=== PATIENT | female | born 1965 | race Caucasian/White ===

== ENCOUNTER 2021-01-27 14:19 | Inpatient (IN) | payer OTHER, SELFPAY ==
[2021-01-27] VITALS (7 sets, daily range): BP systolic 121–162; BP diastolic 69–100; PULSE 65–89; RESP 12–18; TEMP 36–37.3; O2SAT 93–100; BMI 34.3; BMI 35.6
--- NOTE | 2021-01-27 12:59 | CT_ITS ---
HISTORY: right ankle fracture EXAMINATION: CT Ankle W/O Contrast Injection TECHNIQUE: Helically acquired images were obtained of the right ankle. 2-D reformats were performed by the technologist. A radiation dose optimization technique was used for this scan. IV Contrast dosage and agent: COMPARISON: Right ankle series same date FINDINGS: SOFT TISSUES: Mild soft tissue swelling about the ankle medially and laterally, mild anterior edema. No radiopaque foreign body. BONES/JOINTS: Comminuted and displaced fractures of the distal fibula. Displaced and comminuted fracture of the medial malleolus. Displaced and comminuted fracture of the posterior malleolus. Talus displaced laterally with mild tilt. No fracture of the hindfoot are included mid foot. CT/Extremity Lower without Contra IMPRESSION: Comminuted trimalleolar fracture with instability of the mortise joint. Individualized dose optimization techniques were used for this CT. at 1947 Reported and signed by: Edmundo Luna MD Electronically Signed: Edmundo Luna MD at 19:45 EDT Tel , Service support ,
--- NOTE | 2021-01-27 14:24 | RAD_ITS ---
STUDY: X-RAY - RIGHT ANKLE REASON FOR EXAM: Female, 55 years old. FALL TECHNIQUE: 3 view(s) of the ankle. COMPARISON: None. FINDINGS: Lateral displacement of an oblique fracture of the distal fibula. Transverse fracture of the medial malleolus. Asymmetrical ankle mortise. Posterior subluxation of the tibial talar joint. Normal visualized talus and calcaneus. The visualized subtalar, talonavicular, calcaneocuboid and tarsal articulations are normal. Soft tissue swelling. RAD/Ankle min 3 Views IMPRESSION: Oblique fracture of the distal fibula as well as transverse fracture of the medial malleolus with posterior subluxation of the talotibial talar joint. Disruption of the ankle mortise. Electronically Signed: Beau Bailey MD at 14:59 EDT , Service support ,
[2021-01-27] MEDS: fentaNYL 100 MCG/2 ML Ampul 50 MCG IV ×3 (16:05→17:30)
--- NOTE | 2021-01-27 16:38 | EDS_ITS ---
HPI History of Present Illness Chief Complaint: Lower Extremity Injury Informant: patient Occured/Mechanism Mechanism/Context: Yes injury Onset/Context/Timing Onset: Today and Hours Timing: Continuous Current Severity: Moderate Maximum Severity: Moderate Narrative Narrative: 55-year-old female who slipped today twisted her right ankle now having significant pain and swelling. She was brought in by squad. She is in air splint. She denies any other injuries. Did not hit her head. She does have a history of hypertension. Prior similar symptoms: No Recent Illness/Hospitalization: No PFSH PFSH Medical History Hypertension Home Medications losartan 25 mg PO DAILY 01/27/21 [History Last Taken 01/26/21] Allergy/AdvReac Type Severity Reaction Status Date / Time No Known Allergies Allergy Verified 01/27/21 14:20 Social History Smoking Status: Never smoker ROS ROS ED ROS Narrative Denies any recent illness. Review of Systems ROS Unobtainable: Denies due to encephalopathy Constitutional Constitutional ED: Denies chills or fever(s) Eyes Eyes: Denies change in vision ENT ENT ED: Denies ear pain Cardiovascular Cardiovascular: Denies chest pain Respiratory/Chest Respiratory/Chest: Denies dyspnea Gastrointestinal Gastrointestinal: Denies abdominal pain, diarrhea, nausea or vomiting Genitourinary Genitourinary ED: Denies dysuria Musculoskeletal Musculoskeletal: Denies myalgias Integumentary Denies rash Neurologic Neurologic: Denies headache(s) Psychiatric Psychiatric: Denies depression Endocrine Endocrinology: Denies polyuria Hematologic/Lymphatic Hematologic/Lymphatic: Denies easy bruising Allergic/Immunologic Allergic/Immunologic ED: Denies urticaria EXAM Physical Exam Narrative Exam Narrative: Well-appearing middle-aged female. Vital signs stable afebrile. HEENT exam atraumatic. Pupils round reactive light. C-spine nontender. Lungs clear to auscultation bilaterally. Chest nontender. Heart regular rate and rhythm. Abdomen soft nontender. Normal bowel sounds no peritoneal signs. Pelvic girdle intact. Left lower extremity both upper extremities are nontender. Normal range of motion. Neurovascularly intact. No deformities. Right lower extremity right hip and knee are nontender nonswollen. Right ankle has both medial lateral tenderness. Swelling. DP pulses intact. Able to wiggle her toes. Normal touch sensation. Achilles tendon intact. Skin intact. Const Vital Signs: 01/27/21 14:21 01/27/21 15:29 01/27/21 17:24 Temperature 96.8 F L Temperature Source Temporal Pulse Rate 65 75 78 Respiratory Rate 16 12 18 Blood Pressure 123/79 H 147/69 H 162/71 H Blood Pressure Mean 93 95 101 Pulse Ox 96 99 96 Oxygen Delivery Method Room Air Room Air Room Air HEENT normocephalic and atraumatic; Negative for trauma Eyes PERRL Neck full ROM and supple Thyroid: Negative for tender Chest Wall inspection of chest normal and palpation of chest normal Resp normal respiratory effort, no retractions and clear to auscultation bilaterally Cardio regular rate, regular rhythm, S1 normal heart sound, S2 normal heart sound and no murmurs GI non-tender, non-distended and no masses Auscultation: normoactive bowel sounds Palpation: soft; Negative for tender Back/Spine no CVA tenderness Extremity normal to inspection and full ROM Extremity Narrative: Extremities are normal except right ankle swollen. Tender both medially and laterally. Achilles tendon intact. Skin closed. DP pulse intact. Able to wiggle her toes. Normal sensation. Exam consistent with a right ankle fracture. General Extremety ED: Negative for cyanosis, edema or weight-bearing difficulty General Extremity: Negative for cyanosis, edema or weight-bearing difficulty Psych mental status grossly normal Skin Lesions: no lesions Rashes: no rashes MDM MDM MDM Narrative Medical decision making narrative: Patient right ankle injury with on x-ray is a bimalleolar fracture with subluxation of the ankle mortise.. She has been treated with fentanyl IV x2 here and once by the squad. The monitor to be cleaned off of the extremity. She will be placed in a short leg posterior splint with sugar tong medial lateral support.. I have podiatry on page to discuss the case. Patient is hoping for definitive treatment as soon as possible because she lives in [place] and does not have any physicians here and will be here for another week to 2 weeks. Thank you Radiography Diagnostic Testing: Radiology Impression Ankle X-Ray 01/27/21 14:24 IMPRESSION: Oblique fracture of the distal fibula as well as transverse fracture of the medial malleolus with posterior subluxation of the talotibial talar joint. Disruption of the ankle mortise. Electronically Signed: Beau Bailey MD at 14:59 EDT , Service support , Right ankle 3 view x-ray agree with bimalleolar fracture with subluxation and disruption of the ankle mortise. Procedures Lower Extremity Splints Lower Extremity Splint: Orthoglass and Stirrup Splint Fabrication: Fabricated Location: Right Discharge Plan Dx/Rx/DC Orders Clinical Impression: Fall, Bimalleolar avulsion fracture of right ankle Disposition Disposition: Acute Care Hospital [facility]
--- NOTE | 2021-01-27 17:42 | PN.HOSP_ITS ---
Documented by User: Ofelia Saul NP, HOSPITAL CLEANER-C 01/27/21 17:53 Subjective Subjective Patient seen and examined. Being admitted under podiatry for bimalleolar fracture. Patient still experiencing significant pain however just received pain medication in ED. Hospitalist services consulted for medical management. Patient reports a history of hypertension which is controlled. Objective Data Objective Data Vital Signs: Vital Signs Temp Pulse Resp BP Pulse Ox 96.8 F L 78 18 162/71 H 96 01/27/21 14:21 01/27/21 17:24 01/27/21 17:24 01/27/21 17:24 01/27/21 17:24 Oxygen Delivery Method Room Air Weight: 200 lb Body Mass Index (BMI) 34.3 Radiography Diagnostic Testing: Radiology Impression Ankle X-Ray 01/27/21 14:24 IMPRESSION: Oblique fracture of the distal fibula as well as transverse fracture of the medial malleolus with posterior subluxation of the talotibial talar joint. Disruption of the ankle mortise. Electronically Signed: Beau Bailey MD at 14:59 EDT , Service support , Physical Exam Const alert, oriented x3 and no apparent distress Orientation / Consciousness: awake, oriented to person, oriented to place and oriented to time HEENT normocephalic and moist oral mucous membranes Eyes PERRL, EOMs intact bilaterally and conjunctivae normal Neck no lymphadenopathy Resp normal respiratory effort and clear to auscultation bilaterally Cardio regular rate, regular rhythm and no murmurs Peripheral Pulses: pulses 2+ throughout GI normal to inspection, nondistended, normoactive bowel sounds, non-tender and non-distended Extremity normal to inspection Extremity Narrative: Right lower extremity in cast Skin no rashes or lesions noted Lesions: no lesions Rashes: no rashes Trauma: no lacerations or abrasions Neuro CN's II-XII intact bilaterally, no focal motor deficits, no sensory deficits no winnie and deep tendon reflexes 2+ bilaterally Psych mental status grossly normal and affect normal Assessment & Plan Assessment/Plan (1) Bimalleolar avulsion fracture of right ankle: PLAN: 1. Hypertension- controlled. Continue home losartan regimen. 2. Traumatic bimalleolar fracture right ankle- management per podiatry. DVT prophylaxis- per podiatry This patient was seen by Ofelia Saul NP-Alexandru under the supervision of Dr. Baker. Documented by User: Dr. Avery Baker DO 01/27/21 19:27 Charges/Coding Addendum Addendum: Patient was seen and examined independently of Ofelia Saul, she was admitted through the emergency room at [facility] today after sustaining a fall and fracturing her right ankle. Chronic medical problems include essential hypertension. On examination she appeared in good health and spirits, she does not appear to be in any distress. Vital signs as documented. Skin warm and dry and without overt rashes. Neck without JVD, thyroid appears normal, trachea is midline, neck is supple. Lungs clear, normal air movement was noted. Heart exam notable for regular rhythm, normal sounds and absence of murmurs, rubs or gallops. Abdomen unremarkable and without evidence of organomegaly, masses, or abdominal aortic enlargement, bowel sounds are present in all 4 quadrants, no abdominal tenderness was noted. Extremities-a splint was present over the patient's right lower leg, no cyanosis was noted, no clubbing was noted. Neuro: Cranial nerves II through XII are grossly intact, no focal motor deficits were noted, sensation to light touch and pinprick is intact, motor exam 5/5 throughout. Psych: Patient is alert and oriented x3, she does not appear anxious or depressed, she does not appear agitated. I have reviewed Ofelia Saul's progress note including her medical assessment and plan of care and endorse it. Visit Charges Inpatient E&M: 19531 Subs Hosp L2
--- NOTE | 2021-01-27 18:27 | CT_ITS ---
HISTORY: right ankle fracture EXAMINATION: CT Ankle W/O Contrast Injection TECHNIQUE: Helically acquired images were obtained of the right ankle. 2-D reformats were performed by the technologist. A radiation dose optimization technique was used for this scan. IV Contrast dosage and agent: COMPARISON: Right ankle series same date FINDINGS: SOFT TISSUES: Mild soft tissue swelling about the ankle medially and laterally, mild anterior edema. No radiopaque foreign body. BONES/JOINTS: Comminuted and displaced fractures of the distal fibula. Displaced and comminuted fracture of the medial malleolus. Displaced and comminuted fracture of the posterior malleolus. Talus displaced laterally with mild tilt. No fracture of the hindfoot are included mid foot. CT/Coronals Sag Multi Obl 3-D Rec IMPRESSION: Comminuted trimalleolar fracture with instability of the mortise joint. Individualized dose optimization techniques were used for this CT. at 1947 Reported and signed by: Edmundo Luna MD Electronically Signed: Edmundo Luna MD at 19:45 EDT Tel , Service support ,
[2021-01-27] MEDS: 0.9% Saline Lock 10 ML Syringe IV ×2 (19:32→23:56)
[2021-01-27] MEDS: HYDROmorphone 1 MG/ML Syringe IV ×2 (19:33→23:56)
--- NOTE | 2021-01-27 20:01 | PCM.HP.STD ---
HPI - General General Date of Admission: 01/27/21 HPI Narrative PRINCESS PAGE, is a 55 F who presents to the [facility] ER for right ankle fracture. She twisted her ankle today, and sustained a tri-malleolus ankle fracture. I was contacted by ER regarding this patient. Patient lives in [place], [place], and is here visiting family when she twisted her right ankle. 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 She relates she definitely wants to have any possible surgical correction as soon as possible, and would like to have it here in [place] prior to going back home. She relates she plans to stay here for about another 10 days, but could possibly stay a little longer if needed. Per discussion with ER physician they will make attempts at closed reduction and splint placement in the ER. Patient going to be admitted for pain control and plans for ORIF. Patient otherwise relates she relates to hx of hypertension. She denies any injury. She has no other complaints. [facility] Medical History Hypertension Home Medications losartan 25 mg PO DAILY 01/27/21 [History Last Taken 01/26/21] Allergy/AdvReac Type Severity Reaction Status Date / Time No Known Allergies Allergy Verified 01/27/21 14:20 Social History Smoking Status: Never smoker ROS Constitutional Constitutional: Denies chills, fatigue or fever(s) Gastrointestinal Gastrointestinal: Denies nausea or vomiting Vital Signs Vital Signs Vital Signs: 01/27/21 14:21 01/27/21 15:29 01/27/21 17:24 Temperature 96.8 F L Temperature Source Temporal Pulse Rate 65 75 78 Respiratory Rate 16 12 18 Blood Pressure 123/79 H 147/69 H 162/71 H Blood Pressure Mean 93 95 101 Blood Pressure Source Blood Pressure Position Pulse Ox 96 99 96 Oxygen Delivery Method Room Air Room Air Room Air 01/27/21 18:13 01/27/21 19:30 Temperature 98.8 F 99.1 F Temperature Source Temporal Oral Pulse Rate 89 72 Respiratory Rate 16 16 Blood Pressure 121/100 H 147/87 H Blood Pressure Mean 107 107 Blood Pressure Source Monitor Blood Pressure Position Semi-Fowlers Pulse Ox 96 100 Oxygen Delivery Method Room Air Room Air Weight Weight: 94.347 kg Body Mass Index (BMI) 35.6 Physical Exam Const alert, oriented x3 and no apparent distress Extremity Extremity Narrative: Left foot/ankle and leg with splint clean, dry and intact. CFT < 2 second to all toes on the left foot, sensation intact to the toes on the left foot, patient able to dorsiflex and plantarflex toes on the left foot. Results Lab / Micro Data Result Diagrams: 01/27/21 19:50 01/27/21 19:50 Radiology Impression Lower Extremity CT 01/27/21 12:59 IMPRESSION: Comminuted trimalleolar fracture with instability of the mortise joint. Individualized dose optimization techniques were used for this CT. at 1947 Reported and signed by: Edmundo Luna MD Electronically Signed: Edmundo Luna MD at 19:45 EDT Tel , Service support , Ankle X-Ray 01/27/21 14:24 IMPRESSION: Oblique fracture of the distal fibula as well as transverse fracture of the medial malleolus with posterior subluxation of the talotibial talar joint. Disruption of the ankle mortise. Electronically Signed: Beau Bailey MD at 14:59 EDT , Service support , Assessment & Plan Assessment/Plan (1) Trimalleolar fracture of right ankle: (2) Acute right ankle pain: PLAN: Reviewed right ankle xrays from today, obtained and reviewed right ankle CT scan with recon. There is noted to be a displaced trimalleolar ankle fracture on the right side. Reviewed condition and treatment options with patient. We discussed surgical correction and fixation is the recommended treatment for this condition. Reviewed open reduction internal fixation with the patient, reviewed the rationale of procedure, possible benefits vs risks, goals, expectations, estimated healing time, as well as the alternative options. We discussed the possible benefits vs risks of having this completed here in [place] vs her going back to [place] and having this done there. I advised her I will only be here today and through this weekend, and next week I am leaving until 02/14/2021 to go out of town. If she has it here I can do her surgery, and then Dr. Napoles from our group will follow her until she go back to [place] or if she stays I will pick back up following her. Advised patient she will have to immediately establish care in [place] as well. She strongly expresses her desire to have the surgery alisa here in [place]. She will be admitted for pain management and we will plan to proceed with surgery as soon as we can pending OR availability. The ER medical team has proceeded already with attempts at closed reduction and splinting at this time. The right lower leg/ankle and foot are splinted at this time. The hospital medicine team was consulted for hypertension and pre op evaluation as well. Pain mangement: Dilaudid 1mg IV q 4 hr prn pain, tylenol as well Keep right foot elevation, no weightbearing right foot. Keep splint clean, dry and intact. DVT Prophylaxis: SCD left, will plan to start Lovenox 40mg subcutaneous once daily post op.
[2021-01-27 20:20] LABS: Absolute Lymphocyte Count 1.69 X10^3/uL (0.83-4.51); Absolute Neutrophil Count 8.1 X10^3/uL (2.0-7.7); Basophil# 0.05 X10^3/uL; Basophil% 0.5 % (0-1); Eosinophil# 0.19 X10^3/uL; Eosinophils% 1.8 % (0-5); Hematocrit 38.6 % (37-47); Hemoglobin 12.2 g/dL (12.0-15.0); Lymphocyte # 1.69 X10^3/ul (0.83-4.51); Lymphocyte % 15.9 % (19-41); Mean Corp Hgb Conc 31.6 g/dL (32-36); Mean Corpuscular Hgb 28.3 pg (27.0-32.0); Mean Corpuscular Volume 89.6 fL (81-99); Mean Platelet Vol. 9.5 fl (6.2-12.0); Monocyte% 4.7 % (0-10); NRBC Flagged by Analyzer 0 % (0-5); Neutrophil # 8.12 X10^3/uL (2.7-7.7); Neutrophil % 76.5 % (47-70); Platelet Count 382 K/mm3 (150-450); RBC Distribution Width CV 14.3 % (11.6-14.6); RBC Distribution Width SD 46.5 fl (35.1-43.9); Red Blood Count 4.31 M/mm3 (4.2-5.4); White Blood Count 10.6 K/mm3 (4.4-11.0)
[2021-01-27 20:40] LABS: AST(SGOT) 19 U/L (15-37); Alanine Aminotransfer ALT/SGPT 27 U/L (13-56); Albumin, Serum 3.8 g/dL (3.2-5.0); Alkaline Phosphatase 113 U/L (45-117); Anion Gap 6 (5-15); BUN 16 mg/dL (7-18); Chloride 103 mmol/L (98-107); Creatinine, Serum 0.84 mg/dL (0.55-1.02); EST Glomerular Filtration Rate 75 mL/min (>60); Est Glom Filt Rate - Afr Amer 90 mL/min (>60); Estimated Creatinine Clearance 65.35 ml/min; Globulin 3.9 g/dL (2.2-4.2); Glucose 108 mg/dL (74-106); Potassium 3.5 mmol/L (3.5-5.1); Protein, Total 7.7 g/dL (6.4-8.2); Sodium Level 140 mmol/L (136-145)
[2021-01-27] MEDS: Acetaminophen 325 MG Tablet 650 MG PO (21:13)
[2021-01-27 21:54] LABS: Vitamin D,25 Hydroxy 27.3 ng/mL
[2021-01-28] VITALS (13 sets, daily range): BP systolic 102–156; BP diastolic 58–95; PULSE 65–100; RESP 12–18; TEMP 36.6–36.9; O2SAT 65–99; BMI 35.6
--- NOTE | 2021-01-28 05:00 | EKG12_ITS ---
Test Reason : PRE-OP Blood Pressure : / mmHG Vent. Rate : 074 BPM Atrial Rate : 074 BPM P-R Int : 180 ms QRS Dur : 096 ms QT Int : 394 ms P-R-T Axes : 060 034 007 degrees QTc Int : 437 ms Normal sinus rhythm Normal ECG No previous ECGs available Confirmed by LEVI VENTURA, ALMA DELIA ([id number]), script editor CHANDRAKANT WHITE ([id number]) on 01/31/2021 9:57:50 AM Referred By: JACQUELINE Confirmed By:TACHO SIMS MD
[2021-01-28] MEDS: HYDROmorphone 1 MG/ML Syringe IV ×2 (06:37→09:25)
[2021-01-28] MEDS: 0.9% Saline Lock 10 ML Syringe IV ×4 (06:37→20:38)
--- NOTE | 2021-01-28 09:30 | PN.HOSP_ITS ---
Documented by User: Ofelia Saul CNC OPERATOR MACHINIST, CNC OPERATOR MACHINIST-C 01/28/21 09:36 Subjective Subjective Patient seen and examined. Reports continued pain however tolerable. Plan for OR this afternoon. Patient reports mild nausea this morning. Denies other symptoms or complaints. Objective Data Objective Data Vital Signs: Vital Signs Temp Pulse Resp BP Pulse Ox 98.3 F 70 18 124/64 H 95 01/28/21 08:56 01/28/21 09:03 01/28/21 08:56 01/28/21 08:56 01/28/21 08:56 Oxygen Delivery Method Room Air Weight: 208 lb Body Mass Index (BMI) 35.6 Intake & Output: Intake and Output for Last 24 Hours 01/26/21 01/27/21 01/28/21 23:59 23:59 23:59 Intake Total 500 / 500 Output Total 400 / 400 300 / 300 Balance 100 / 100 -300 / -300 Lab / Micro Data Result Diagrams: 01/27/21 19:50 01/27/21 19:50 Labs: Laboratory Results - last 24 hr 01/27/21 19:50: WBC 10.6, RBC 4.31, Hgb 12.2, Hct 38.6, MCV 89.6, MCH 28.3, MCHC 31.6 L, RDW Std Deviation 46.5 H, RDW Coeff of Luis 14.3, Plt Count 382, MPV 9.5, Immature Gran % (Auto) 0.600, Neut % (Auto) 76.5 H, Lymph % (Auto) 15.9 L, [place] % (Auto) 4.7, Eos % (Auto) 1.8, Baso % (Auto) 0.5, Absolute Neuts (auto) 8.1 H, Absolute Lymphs (auto) 1.69, Nucleated RBC % 0 01/27/21 19:50: Sodium 140, Potassium 3.5, Chloride 103, Carbon Dioxide 31.0, Anion Gap 6, BUN 16, Creatinine 0.84, Estim Creat Clear Calc 65.35, Est GFR (MDRD) Af Amer 90, Est GFR (MDRD) Non-Af 75, BUN/Creatinine Ratio 19.0, Glucose 108 H, Calcium 9.0, Total Bilirubin 0.30, AST 19, ALT 27, Alkaline Phosphatase 113, Total Protein 7.7, Albumin 3.8, Globulin 3.9, Albumin/Globulin Ratio 1.0 01/27/21 19:50: Vitamin D 25-Hydroxy 27.3 Micro: Microbiology 01/27/21 22:45 Mucosa - Nose SARS-CoV-2 Antigen (Rapid) - Final Radiography Diagnostic Testing: Radiology Impression Lower Extremity CT 01/27/21 12:59 IMPRESSION: Comminuted trimalleolar fracture with instability of the mortise joint. Individualized dose optimization techniques were used for this CT. at 1947 Reported and signed by: Edmundo Luna MD Electronically Signed: Edmundo Luna MD at 19:45 EDT Tel , Service support , Ankle X-Ray 01/27/21 14:24 IMPRESSION: Oblique fracture of the distal fibula as well as transverse fracture of the medial malleolus with posterior subluxation of the talotibial talar joint. Disruption of the ankle mortise. Electronically Signed: Beau Bailey MD at 14:59 EDT , Service support , 3D Reconstruction 01/27/21 18:27 IMPRESSION: Comminuted trimalleolar fracture with instability of the mortise joint. Individualized dose optimization techniques were used for this CT. at 1947 Reported and signed by: Edmundo Luna MD Electronically Signed: Edmundo Luna MD at 19:45 EDT Tel , Service support , Physical Exam Const alert, oriented x3 and no apparent distress Orientation / Consciousness: awake, oriented to person, oriented to place and oriented to time HEENT normocephalic and moist oral mucous membranes Eyes PERRL, EOMs intact bilaterally and conjunctivae normal Neck no lymphadenopathy Resp normal respiratory effort and clear to auscultation bilaterally Cardio regular rate, regular rhythm and no murmurs Peripheral Pulses: pulses 2+ throughout GI normal to inspection, nondistended, normoactive bowel sounds, non-tender and non-distended Extremity normal to inspection Extremity Narrative: Right lower extremity in cast. Skin no rashes or lesions noted Lesions: no lesions Rashes: no rashes Trauma: no lacerations or abrasions Neuro CN's II-XII intact bilaterally, no focal motor deficits, no sensory deficits noted and deep tendon reflexes 2+ bilaterally Psych mental status grossly normal and affect normal Assessment & Plan Assessment/Plan (1) Trimalleolar fracture of right ankle: PLAN: 1. Hypertension- controlled. Continue home losartan regimen. 2. Traumatic displaced trimalleolar fracture right ankle- management per podiatry. Stable for OR from a medical standpoint. DVT prophylaxis- per podiatry This patient was seen by MARIANNE Obrien under the supervision of Dr. Baker. Documented by User: Dr. Avery Baker DO 01/28/21 18:18 Objective Data Lab / Micro Data Result Diagrams: 01/27/21 19:50 01/27/21 19:50 Charges/Coding Addendum Addendum: Patient was seen and examined today independently of Ofelia Saul, she was seen before she went to surgery today for repair of her right ankle fracture. Patient had no complaints of any shortness of breath or chest discomfort. On examination she appeared in good health and spirits, she does not appear to be in any distress. Vital signs as documented. Skin warm and dry and without overt rashes. Neck without JVD, thyroid appears normal, trachea is midline, neck is supple. Lungs clear, normal air movement was noted. Heart exam notable for regular rhythm, normal sounds and absence of murmurs, rubs or gallops. Abdomen unremarkable and without evidence of organomegaly, masses, or abdominal aortic enlargement, bowel sounds are present in all 4 quadrants, no abdominal tenderness was noted. Extremities- no cyanosis was noted, no clubbing was noted. Neuro: Cranial nerves II through XII are grossly intact, no focal motor deficits were noted, sensation to light touch and pinprick is intact, motor exam 5/5 throughout. Psych: Patient is alert and oriented x3, she does not appear anxious or depressed, she does not appear agitated. I have reviewed Ofelia Saul's progress note including her medical assessment and plan of care and endorse it. Visit Charges Inpatient E&M: 76272 Subs Hosp L2
--- NOTE | 2021-01-28 10:17 | CASEMGMT ---
BETTINA NOVOA VIDEO EDITING INTERN CM to room to meet with patient for initial transition planning/care coordination assessment. BETTINA NOVOA introduced self and role at [facility]. Pt voices understanding and consents to assessment at this time. Pt resting in bed in no distress at this time. Pt is A/O at this time and answers all questions appropriately. Care providers, pharmacy, and demographics verified/updated at this time. PCP: Dr Claudio Brasher, in [place], [place] Specialists:None Preferred Pharmacy:[facility] Insurance: [employer] Prescription Benefit: Yes Living Will/HPOA: Pt does not currently have LW/HCPOA LNOK: , Finesse (lives in [place]), daughter, Chiqui (lives in [place], [place]), son (25-yr-old, lives w/pt and her in [place]), sister, Margarita (lives in [place]). Jzcnkt-kb-rgz, Alix--lives in [place] and where pt will be going after discharging from the hospital until she returns to [place]. Living Arrangements: Lives w/her in [place]. 25-yr-old son lives w/them, in one-story home w/one small step to enter. Pt was independent prior to surgery. Works as a school-teacher. Pt plans to discharge to her mrhgxy-rx-vwry home (Alix) who lives in [place] and will stay there until she returns to [place]. Mguoek-jv-hql's home is a one-story home w/no steps to enter through the front door and 3 steps to enter through the garage. Transportation: Pt drove prior to injury. Yzaypz-dd-ocg will be taking her home @ discharge. DME: Pt does not have any DME. She states would like to get a knee-scooter. Pt made aware this is not an item insurance will pay for and made aware this could be purchased on-line or may be able to find at DME co. Pt given list of local DME co's. Call placed to [facility] to inquire about cost of knee scooter. Per [facility], they have one available and cost is $300. Pt made aware and states will have family check around for a more affordable one. She states she may want crutches or other DME in the meantime until they can purchase a knee scooter. Pt aware therapy will work w/her after surgery either this evening or tomorrow and can evaluate and give recommendations for DME. Pt voices understanding. HHC/SNF: No history of either. CM to follow for any discharge planning/needs. Pt voices no further concerns/needs at this time. Advised pt to ask for CM if any further questions/concerns/needs arise. Voices understanding. PLAN: Pt wishes to discharge to her rcjeye-wb-jcpd home (Alix) who lives in [place] and will stay there until she returns to [place]. Pt to have ORIF this afternoon. PT eval pending. Pt may need crutches, walker, or W/C. Follow for any DME recommendations after evals completed. Green sheet on chart w/instructions for DME, as needed. Kit ESTRADA RN CM
[2021-01-28] MEDS: Ondansetron 4 MG/2 ML Vial IV (11:10)
[2021-01-28] MEDS: Cefazolin 2 GM in 0.9% Normal Saline 100 ML IV (13:14)
--- NOTE | 2021-01-28 14:05 | RAD_ITS ---
STUDY: Fluoroscopically guided pulmonary procedure of the ankle. REASON FOR EXAM: Female, 55 years old. ORIF ANKLE TECHNIQUE: Fluoroscopy was provided for operative procedure of ORIF of the ankle. The radiologist was not present in the room. 6 images were obtained during the exam. COMPARISON: None. FINDINGS: Images obtained in different stages of the procedure reveal final placement of a plate through the distal fibula with multiple screws. 2 fixation screws of the medial malleolus. Normal alignment. RAD/Ankle min 3 Views IMPRESSION: Fluoroscopically guided or surgery of ankle. For details please see operative report. Electronically Signed: Mahi Kline MD at 1:52 EDT , Service support ,
--- NOTE | 2021-01-28 17:09 | PCM.OPRPT ---
Report of Operation Date of Procedure: 01/28/21 Pre-Operative Diagnosis: Trimalleolus ankle fracture, right Post-Operative Diagnosis: Same Surgery/Procedure Performed:: Open reduction internal fixation of right trimalleolus ankle fracture. She presented to the Emergency Room and was splinted per the ER physician. Patient is from [place], [place] here visiting family and she felt strongly she wanted to have the surgery here in [place]. This was discussed with her in great detail, reviewed the rationale of this with her, reviewed the possible benefits vs risks, alternative options, goals, expectations, and typical healing time / post op protocol. She was advised the risks include but not limited to infection, blood clots, pain, swelling, arthritis, need for further surgery/procedures, nonhealing, scarring, wounds, short circuit of the nervous system, deformity, loss of function, loss of limb, loss of life. Alternative options of no treatment, closed reduction and splinting/casting, as well as going back to [place], [place] were discussed with her. She wanted to and agreed with proceeding with the open reduction internal fixation procedure here in [place], she wanted it done as soon as possible. The consent forms were reviewed with her and she freely signed them. All of her questions were answered. No guarantees were given nor implied. No warranties were given. Operative Procedure. The patient was brought into the operating room and was placed on to the operating room table in the supine position. He was carefully secured to the operating table with a safety belt around her waist. A time out was performed and the patient was properly identified and the surgical plan was confirmed. The patient received 2 grams intravenous cefazolin for antibiotic prophylaxis. The patient received general anesthesia per the anesthesiologist. A well padded pneumatic tourniquet was applied around her right thigh. There was some bruising and edema consistent the injury. There were no open lesions or signs of infection. There was noted to be slight superficial blister to the medial anterior ankle. The ankle was very unstable consistent with the fracture pattern. The right lower extremity was scrubbed, prepped, draped in the usual aseptic fashion. The right foot/ankle was elevated for 3 minutes and the right thigh pneumatic tourniquet was inflated to 300mmHg. Again the ankle was noted to be very unstable, consistent with a trimalleolar equivalent ankle fracture. Using a 15 blade, a skin incision was made overlying the lateral malleolus. Careful dissection was completed down to the periosteum of the lateral malleolus, exposing the oblique lateral malleolus fracture. The fibula was brought out to length and was rotated back to normal position, it was stabilized with a bone clamp and stabilized with 1 Arthrex titanium fibular locking plate using 6 locking screws distal to the fracture site, and 4 locking screws along with 2 cortical screws proximal to the fracture site, all through the plate. This was done using rigid open reduction internal fixation technique. The clamp was removed, and the fibular fracture site was very stable and in good position, there was excellent bone to bone contact. This was confirmed with intra operative fluoroscopy. Attention was directed to the medial malleolus where a longitudinal skin incision was made midline over the medial malleolus. Careful dissection was completed down to medial malleolus fracture. The fracture was visualized, and unstable. The fracture was reduced into normal position and fixated using rigid open reduction internal fixation technique using 2 Arthrex titanium partially threaded cannulated screws. The fracture was fixated in good position, it was very stable is excellent compression and bone to bone contact. This was confirmed with intra operative fluoroscopy. The ankle was stressed and there was concern for the possibility of some slight instability of the distal tib fib syndesmosis, so holding the ankle in a dorsiflexed neutral position a knotless Arthrex tightrope was placed across the fixating the distal syndesmosis, after it was appropriately drilled - this was done being sure not to disrupt the medial malleolar screws. The tight rope was placed through the fibular plate. At this time there was noted to be excellent stability to the ankle joint, range of motion was smooth and gliding normally. There was no popping, clicking, or crepitus present. Intraoperative fluoroscopy was used to check the site and it was noted fibular length and tib fib overlap was normal, medial and lateral gutters normal, and alignment in good position with good positioning of the plate and screws, along with the tightrope. There was good bone to bone alignment of the fracture sites and they were in good position. There was excellent stability to the ankle / fracture site. The posterior malleolus fracture was reduced in good position, and was not fixated because there was <25% involvement. The ankle was stressed under fluoroscopy and negative anterior drawer, normal talar tilt, no medial gutter gapping with external stress test, and no gapping or instability with Cotton test. The surgical site was flushed out with copious amounts of normal saline solution. The deep fascia and subcutaneous tissue were reapproximated using 3-0 Vicryl, and the skin was 3-0 Monocryl. The incision site and margins were painted with Cavilon and steri strips were applied across the sutured skin incision sites. Of note all vital structures, including all vital tendons, as well as neurovascular structures were identified and carefully protected and retracted as needed throughout the procedure. The tissues otherwise were noted to appear healthy and viable to the ankle with no suspicious findings. A dressing was applied which consisted of betadine soaked adaptic, 4x4 gauze, kerlix, webril, christina bandages, and well padded below knee posterior splint. Of note the pneumatic tourniquet was deflated at end of the procedure and it was noted all hemostasis was achieved. There was immediate return of vascular flow to the foot/ankle, CFT < 2 seconds, and normal temperature present. Total tourniquet time was 120 minutes. Also of note, all vital structures, including all vital neurovascular and tendon structures were properly identified, protected and retracted as necessary. The patient tolerated the above procedure well and anesthesia well with no complications. The patient was transported to the recovery room in good condition and vital signs stable. She did receive a right lower extremity popliteal block per the anesthesiology service in the post op recovery room. Post op orders were placed, no weightbearing right foot, keep right foot elevated. She will be followed as inpatient for post op pain control and observation. Post op ankle xrays were obtained in the recovery room as well which again confirmed open reduction of the ankle fracture with the ankle in good alignment. Fibular length and tib fib overlap was normal, medial and lateral gutters normal, and alignment in good position with good positioning of the plate and screws. There was good bone to bone alignment of the fracture site in good position. There was excellent stability to the ankle / fracture site. Surgeon: Moo Roblero rental manager: Dr. Monsalve Type of Anesthesia: General Specimen's removed: None Estimated Blood Loss (mL): 15mL Description of Procedure: Indications: This is a 55 year old female who sustained a right trimalleolus ankle fracture with dislocation. Grafts/Implants Used: Arthrex titanium fibular place and screws, 1 Arthrex tight rope Complications None
--- NOTE | 2021-01-28 17:35 | RAD_ITS ---
HISTORY: post op EXAMINATION/TECHNIQUE: XR Ankle Min 3 Views: COMPARISON: Right ankle series 01/27/21 FINDINGS: 3 views obtained in a fiberglass cast show interval surgical reduction and internal fixation with hardware of the bimalleolar fractures. Mortise joint is anatomically aligned. RAD/Ankle min 3 Views IMPRESSION: Status post ORIF bimalleolar fractures. at 2027 Reported and signed by: Edmundo Luna MD Electronically Signed: Edmundo Luna MD at 20:27 EDT Tel , Service support ,
[2021-01-28] MEDS: oxyCODONE 5 MG Tablet 10 MG PO (20:37)
[2021-01-28] MEDS: Acetaminophen 325 MG Tablet 650 MG PO (20:37)
[2021-01-28] MEDS: Cefazolin 1 GM/50 ML BAG IV (20:45)
[2021-01-29 01:55] VITALS: BP 120/58; PULSE 76; RESP 15; TEMP 36.6; O2SAT 92
[2021-01-29] MEDS: oxyCODONE 5 MG Tablet 10 MG PO ×3 (02:41→16:57)
[2021-01-29] MEDS: Acetaminophen 325 MG Tablet 650 MG PO ×3 (02:42→16:57)
[2021-01-29 06:12] VITALS: BP 109/56; PULSE 66; RESP 15; TEMP 36.8; O2SAT 95
[2021-01-29] MEDS: Cefazolin 1 GM/50 ML BAG IV ×2 (06:15→14:02)
[2021-01-29 08:01] LABS: Anion Gap 6 (5-15); BUN 12 mg/dL (7-18); BUN/Creat Ratio 16.6 RATIO (10-20); Calcium,Total 8.7 mg/dL (8.5-10.1); Chloride 103 mmol/L (98-107); Creatinine, Serum 0.72 mg/dL (0.55-1.02); EST Glomerular Filtration Rate 89 mL/min (>60); Est Glom Filt Rate - Afr Amer 108 mL/min (>60); Estimated Creatinine Clearance 76.24 ml/min; Glucose 113 mg/dL (74-106); Potassium 3.8 mmol/L (3.5-5.1); Sodium Level 139 mmol/L (136-145)
[2021-01-29 08:08] LABS: Absolute Lymphocyte Count 1.35 X10^3/uL (0.83-4.51); Absolute Neutrophil Count 9.2 X10^3/uL (2.0-7.7); Basophil# 0.01 X10^3/uL; Basophil% 0.1 % (0-1); Hemoglobin 10.8 g/dL (12.0-15.0); Lymphocyte # 1.35 X10^3/ul (0.83-4.51); Lymphocyte % 11.8 % (19-41); Mean Corp Hgb Conc 30.9 g/dL (32-36); Mean Corpuscular Hgb 28.1 pg (27.0-32.0); Mean Corpuscular Volume 90.9 fL (81-99); Mean Platelet Vol. 9.6 fl (6.2-12.0); Monocyte# 0.78 X10^3/uL; Monocyte% 6.8 % (0-10); NRBC Flagged by Analyzer 0 % (0-5); Neutrophil # 9.24 X10^3/uL (2.7-7.7); Neutrophil % 80.7 % (47-70); Platelet Count 317 K/mm3 (150-450); RBC Distribution Width CV 14.5 % (11.6-14.6); RBC Distribution Width SD 48.6 fl (35.1-43.9); Red Blood Count 3.85 M/mm3 (4.2-5.4); White Blood Count 11.5 K/mm3 (4.4-11.0)
--- NOTE | 2021-01-29 08:14 | PN_ITS ---
Subjective Subjective Patient was seen this morning for follow up on ORIF right ankle. She is resting in bed with foot elevated. She is feeling good, she relates she is feeling much better. No fever, chills, nausea or vomiting. No calf pain or any other complaints at this time. Objective Data Objective Data Vital Signs: Vital Signs Temp Pulse Resp BP Pulse Ox 98.2 F 66 15 109/56 L 95 01/29/21 06:12 01/29/21 06:12 01/29/21 06:12 01/29/21 06:12 01/29/21 06:12 Oxygen Flow Rate (L/min) 1 Oxygen Delivery Method Room Air Weight: 94.347 kg Body Mass Index (BMI) 35.6 Intake & Output: Intake and Output for Last 24 Hours 01/27/21 01/28/21 01/29/21 23:59 23:59 23:59 Intake Total 500 / 500 160 / 1180 1470 / 1470 Output Total 400 / 400 550 / 1550 1700 / 1700 Balance 100 / 100 -390 / -370 -230 / -230 Lab / Micro Data Result Diagrams: 01/29/21 07:10 01/29/21 07:10 Labs: Laboratory Results - last 24 hr 01/29/21 07:10: Sodium 139, Potassium 3.8, Chloride 103, Carbon Dioxide 30.0, Anion Gap 6, BUN 12, Creatinine 0.72, Estim Creat Clear Calc 76.24, Est GFR (MDRD) Af Amer 108, Est GFR (MDRD) Non-Af 89, BUN/Creatinine Ratio 16.6, Glucose 113 H, Calcium 8.7 01/29/21 07:10: WBC 11.5 H, RBC 3.85 L, Hgb 10.8 L, Hct 35.0 L, MCV 90.9, MCH 28.1, MCHC 30.9 L, RDW Std Deviation 48.6 H, RDW Coeff of Luis 14.5, Plt Count 317, MPV 9.6, Immature Gran % (Auto) 0.600, Neut % (Auto) 80.7 H, Lymph % (Auto) 11.8 L, [place] % (Auto) 6.8, Eos % (Auto) 0.0, Baso % (Auto) 0.1, Absolute Neuts (auto) 9.2 H, Absolute Lymphs (auto) 1.35, Nucleated RBC % 0 Micro: Microbiology 01/27/21 22:45 Mucosa - Nose SARS-CoV-2 Antigen (Rapid) - Final Radiography Diagnostic Testing: Radiology Impression Ankle X-Ray 01/28/21 14:05 IMPRESSION: Fluoroscopically guided or surgery of ankle. For details please see operative report. Electronically Signed: Mahi Kline MD at 1:52 EDT , Service support , Ankle X-Ray 01/28/21 17:35 IMPRESSION: Status post ORIF bimalleolar fractures. at 2027 Reported and signed by: Edmundo Luna MD Electronically Signed: Edmundo Luna MD at 20:27 EDT Tel , Service support , Physical Exam Const alert, oriented x3 and no apparent distress Extremity Extremity Narrative: Right foot/ankle and leg with splint clean, dry and intact; CFT < 2 second to all toes on the foot, sensation intact to the toes on the right foot, patient able to dorsiflex and plantarflex toes, heel offloaded, no suspicion for infection. No calf pain or suspicion for DVT at this time pranay ateral LE. Assessment & Plan Assessment/Plan (1) Trimalleolar fracture of right ankle: (2) Acute right ankle pain: PLAN: s/p ORIF right ankle on 01/28/2021 - she did well overnight. No evidence of complications or adverse reactions at this time. Reviewed surgical details with patient. Pain management: oxycodone, tylenol, and morphine. She has not needed the morphine so far post op. We will monitor patient today and if she is doing well this afternoon and pain controlled on oral pain medication I would be ok discharging the patient home. Keep right foot elevated, no weightbearing right foot. Keep splint clean, dry and intact. DVT Prophylaxis: Start Lovenox 40mg subcutaneous once daily post op this morning. Vitamin D low: Start Vitamin D3 5,000 IU PO once a day. Hospital medicine team following patient as well - appreciate assistance.
[2021-01-29 08:30] VITALS: BP 113/59; PULSE 72; RESP 16; TEMP 36.9; O2SAT 96
--- NOTE | 2021-01-29 10:45 | PN.HOSP_ITS ---
Documented by User: Ofelia Saul NP, [employer] 01/29/21 10:48 Subjective Subjective Patient seen and examined. Pain controlled on oral pain medicine. Discussed bowel regimen for constipation. Possible discharge home today per podiatry. Objective Data Objective Data Vital Signs: Vital Signs Temp Pulse Resp BP Pulse Ox 98.5 F 72 16 113/59 L 96 01/29/21 08:30 01/29/21 08:30 01/29/21 08:30 01/29/21 08:30 01/29/21 08:30 Oxygen Flow Rate (L/min) 1 Oxygen Delivery Method Room Air Weight: 208 lb Body Mass Index (BMI) 35.6 Intake & Output: Intake and Output for Last 24 Hours 01/27/21 01/28/21 01/29/21 23:59 23:59 23:59 Intake Total 500 / 500 160 / 1180 1470 / 1470 Output Total 400 / 400 550 / 1550 1700 / 1700 Balance 100 / 100 -390 / -370 -230 / -230 Lab / Micro Data Result Diagrams: 01/29/21 07:10 01/29/21 07:10 Labs: Laboratory Results - last 24 hr 01/29/21 07:10: Sodium 139, Potassium 3.8, Chloride 103, Carbon Dioxide 30.0, Anion Gap 6, BUN 12, Creatinine 0.72, Estim Creat Clear Calc 76.24, Est GFR (MDRD) Af Amer 108, Est GFR (MDRD) Non-Af 89, BUN/Creatinine Ratio 16.6, Glucose 113 H, Calcium 8.7 01/29/21 07:10: WBC 11.5 H, RBC 3.85 L, Hgb 10.8 L, Hct 35.0 L, MCV 90.9, MCH 28.1, MCHC 30.9 L, RDW Std Deviation 48.6 H, RDW Coeff of Luis 14.5, Plt Count 317, MPV 9.6, Immature Gran % (Auto) 0.600, Neut % (Auto) 80.7 H, Lymph % (Auto) 11.8 L, [place] % (Auto) 6.8, Eos % (Auto) 0.0, Baso % (Auto) 0.1, Absolute Neuts (auto) 9.2 H, Absolute Lymphs (auto) 1.35, Nucleated RBC % 0 Micro: Microbiology 01/27/21 22:45 Mucosa - Nose SARS-CoV-2 Antigen (Rapid) - Final Radiography Diagnostic Testing: Radiology Impression Ankle X-Ray 01/28/21 14:05 IMPRESSION: Fluoroscopically guided or surgery of ankle. For details please see operative report. Electronically Signed: Mahi Kline MD at 1:52 EDT , Service support , Ankle X-Ray 01/28/21 17:35 IMPRESSION: Status post ORIF bimalleolar fractures. at 2027 Reported and signed by: Edmundo Luna MD Electronically Signed: Edmundo Luna MD at 20:27 EDT Tel , Service support , Physical Exam Const alert, oriented x3 and no apparent distress Orientation / Consciousness: awake, oriented to person, oriented to place and oriented to time HEENT normocephalic and moist oral mucous membranes Eyes PERRL, EOMs intact bilaterally and conjunctivae normal Neck no lymphadenopathy Resp normal respiratory effort and clear to auscultation bilaterally Cardio regular rate, regular rhythm and no murmurs Peripheral Pulses: pulses 2+ throughout GI normal to inspection, nondistended, normoactive bowel sounds, non-tender and non-distended Extremity normal to inspection Extremity Narrative: Right lower extremity in cast. Skin no rashes or lesions noted Lesions: no lesions Rashes: no rashes Trauma: no lacerations or abrasions Neuro CN's II-XII intact bilaterally, no focal motor deficits, no sensory deficits noted and deep tendon reflexes 2+ bilaterally Psych mental status grossly normal and affect normal Assessment & Plan Assessment/Plan (1) Trimalleolar fracture of right ankle: PLAN: 1. Hypertension- controlled. Continue home losartan regimen. 2. Traumatic displaced trimalleolar fracture right ankle- management per podiatry. Patient underwent open reduction internal fixation of the right Malleolus ankle fracture 01/28/2021. DVT prophylaxis- per podiatry Discharge plan: Stable for discharge from hospital medicine standpoint. This patient was seen by MARIANNE Obrien under the supervision of Dr. Baker. Documented by User: Dr. Avery Baker, 01/29/21 14:21 Objective Data Lab / Micro Data Result Diagrams: 01/29/21 07:10 01/29/21 07:10 Charges/Coding Addendum Addendum: Patient was seen and examined today independently of Ofelia Saul, she states her pain is under control with her present medications. Patient does not complain of any shortness of breath or chest discomfort. On examination she appeared in good health and spirits, she does not appear to be in any distress. Vital signs as documented. Skin warm and dry and without overt rashes. Neck without JVD, thyroid appears normal, trachea is midline, neck is supple. Lungs clear, normal air movement was noted. Heart exam notable for regular rhythm, normal sounds and absence of murmurs, rubs or gallops. Abdomen unremarkable and without evidence of organomegaly, masses, or abdominal aortic enlargement, bowel sounds are present in all 4 quadrants, no abdominal tenderness was noted. Extremities-right lower leg was enclosed in a cast, no cyanosis was noted, no clubbing was noted. Neuro: Cranial nerves II through XII are grossly intact, no focal motor deficits were noted, sensation to light touch and pinprick is intact, motor exam 5/5 throughout. Psych: Patient is alert and oriented x3, she does not appear anxious or depressed, she does not appear agitated. I have reviewed Ofelia Saul's progress note including her medical assessment and plan of care and endorse it. Visit Charges Inpatient E&M: 01924 Subs Hosp L2
[2021-01-29] MEDS: Enoxaparin 40 MG/0.4 ML Syringe SC (10:57)
[2021-01-29] MEDS: Cholecalciferol (VIT D3) 25 MCG TABLET (1,000 UNITS) 125 MCG PO (10:57)
[2021-01-29 14:00] VITALS: BP 110/59; PULSE 62; RESP 16; TEMP 36.7; O2SAT 97
[2021-01-29] MEDS: 0.9% Saline Lock 10 ML Syringe IV (15:19)
[2021-01-29] MEDS: Morphine 2 MG/ML Syringe 4 MG IV (15:19)
--- NOTE | 2021-01-29 17:50 | CM.ED ---
SW Note Referral Source: [facility] President Referral Reason: Discharge ara SW was advised by CM that plan is for patient to be discharged home. EDWIGE sent email to Marifer in TCU/Rehab Admissions updating her that patient will be discharged home. No further SW needs at this time. Plan: Home [facility]
[2021-01-29 20:00] VITALS: BP 102/55; PULSE 70; RESP 16; TEMP 36.7; O2SAT 94
[2021-01-30] MEDS: oxyCODONE 5 MG Tablet 10 MG PO ×3 (00:47→14:34)
[2021-01-30] MEDS: Morphine 2 MG/ML Syringe 4 MG IV ×2 (01:46→08:06)
[2021-01-30 02:00] VITALS: BP 122/68; PULSE 62; RESP 18; TEMP 36.7; O2SAT 96
[2021-01-30] MEDS: 0.9% Saline Lock 10 ML Syringe IV ×2 (08:06→13:34)
[2021-01-30 08:23] VITALS: BP 125/57; PULSE 72; RESP 18; TEMP 36.5; O2SAT 99
[2021-01-30 08:32] LABS: Absolute Lymphocyte Count 2.92 X10^3/uL (0.83-4.51); Absolute Neutrophil Count 5.5 X10^3/uL (2.0-7.7); Basophil# 0.04 X10^3/uL; Basophil% 0.4 % (0-1); Eosinophil# 0.21 X10^3/uL; Eosinophils% 2.2 % (0-5); Hematocrit 34.3 % (37-47); Hemoglobin 10.8 g/dL (12.0-15.0); Lymphocyte # 2.92 X10^3/ul (0.83-4.51); Lymphocyte % 31.3 % (19-41); Mean Corp Hgb Conc 31.5 g/dL (32-36); Mean Corpuscular Hgb 28.3 pg (27.0-32.0); Mean Platelet Vol. 9.2 fl (6.2-12.0); Monocyte# 0.67 X10^3/uL; Monocyte% 7.2 % (0-10); NRBC Flagged by Analyzer 0 % (0-5); Neutrophil # 5.47 X10^3/uL (2.7-7.7); Neutrophil % 58.6 % (47-70); Platelet Count 315 K/mm3 (150-450); RBC Distribution Width CV 14.4 % (11.6-14.6); RBC Distribution Width SD 47.7 fl (35.1-43.9); Red Blood Count 3.81 M/mm3 (4.2-5.4); White Blood Count 9.3 K/mm3 (4.4-11.0)
[2021-01-30] MEDS: Enoxaparin 40 MG/0.4 ML Syringe SC (08:32)
[2021-01-30] MEDS: Cholecalciferol (VIT D3) 25 MCG TABLET (1,000 UNITS) 125 MCG PO (08:32)
--- NOTE | 2021-01-30 08:45 | PCM.PROGNOTE ---
Subjective Subjective Patient was seen this morning for follow up on right ankle ORIF. She relates it feels like the block has worn off, she has had a lot of pain, she relates she had difficulty sleeping last night. She relates pain is to the ankle (points to the medial and lateral ankle). No fever, chills, nausea or vomiting. No complaints of calf pain, shortness of breath or chest pain. Objective Data Objective Data Vital Signs: Vital Signs Temp Pulse Resp BP Pulse Ox 97.7 F L 72 18 125/57 H 99 01/30/21 08:23 01/30/21 08:23 01/30/21 08:23 01/30/21 08:23 01/30/21 08:23 Oxygen Flow Rate (L/min) 1 Oxygen Delivery Method Room Air Weight: 94.347 kg Body Mass Index (BMI) 35.6 Intake & Output: Intake and Output for Last 24 Hours 01/28/21 01/29/21 01/30/21 23:59 23:59 23:59 Intake Total 160 / 1180 3320 / 3320 Output Total 550 / 1550 3800 / 3800 Balance -390 / -370 -480 / -480 Lab / Micro Data Result Diagrams: 01/30/21 08:07 01/30/21 08:07 Labs: Laboratory Results - last 24 hr 01/30/21 08:07: WBC 9.3, RBC 3.81 L, Hgb 10.8 L, Hct 34.3 L, MCV 90.0, MCH 28.3, MCHC 31.5 L, RDW Std Deviation 47.7 H, RDW Coeff of Luis 14.4, Plt Count 315, MPV 9.2, Immature Gran % (Auto) 0.300, Neut % (Auto) 58.6, Lymph % (Auto) 31.3, [place] % (Auto) 7.2, Eos % (Auto) 2.2, Baso % (Auto) 0.4, Absolute Neuts (auto) 5.5, Absolute Lymphs (auto) 2.92, Nucleated RBC % 0 Micro: Microbiology 01/27/21 22:45 Mucosa - Nose SARS-CoV-2 Antigen (Rapid) - Final Physical Exam Const alert, oriented x3 and no apparent distress Extremity Extremity Narrative: Right foot/ankle and leg with splint clean, dry and intact; CFT < 2 second to all toes on the foot, sensation intact to the toes on the right foot, patient able to dorsiflex and plantarflex toes, heel offloaded, no suspicion for infection. Incisoin sites well coapted right ankle, sutures intact, no dehiscence, bleeding controlled, no evidence of ischemia or necrosis. No calf pain or suspicion for DVT at this time bilateral LE. Assessment & Plan Assessment/Plan (1) Trimalleolar fracture of right ankle: (2) Acute right ankle pain: PLAN: s/p ORIF right ankle on 01/28/2021. She is afebrile, WBC normal. Splint and dressing was removed - there is no evidence of infection or complication at this time. Changed dressing - painted incision sites with betadine soln, applied clean, dry, sterile gauze, kerlix and christina dressing with overlying well padded below knee posterior splint with heel offloaded. She related to significant improvement after splint/dressing change and after receiving dose of ordered pain medication this morning. Pain management: oxycodone, Tylenol, and morphine. Once pain is controlled on just oral pain meds ok for patient to be discharged home. Keep right foot elevated, no weightbearing right foot. Keep splint clean, dry and intact. DVT Prophylaxis: Lovenox 40mg subcutaneous once daily post op - plan for Eqliqus 2.5mg PO BID once she goes home. Vitamin D low: Vitamin D3 5,000 IU PO once a day. Hospital medicine team following patient as well - appreciate assistance.
[2021-01-30 09:04] LABS: Anion Gap 4 (5-15); BUN 10 mg/dL (7-18); BUN/Creat Ratio 14.9 RATIO (10-20); Calcium,Total 8.5 mg/dL (8.5-10.1); Chloride 102 mmol/L (98-107); Creatinine, Serum 0.67 mg/dL (0.55-1.02); EST Glomerular Filtration Rate 97 mL/min (>60); Est Glom Filt Rate - Afr Amer 118 mL/min (>60); Estimated Creatinine Clearance 81.93 ml/min; Glucose 88 mg/dL (74-106); Potassium 3.5 mmol/L (3.5-5.1); Sodium Level 139 mmol/L (136-145)
--- NOTE | 2021-01-30 10:26 | PN.HOSP_ITS ---
Documented by User: Ofelia Saul NP, [employer]-C 01/30/21 10:27 Subjective Subjective Patient seen and examined. States she had a rough night. Pain now tolerable. Reports nausea without emesis. Plan for DC home this afternoon per podiatry. Objective Data Objective Data Vital Signs: Vital Signs Temp Pulse Resp BP Pulse Ox 97.7 F L 72 18 125/57 H 99 01/30/21 08:23 01/30/21 08:23 01/30/21 08:23 01/30/21 08:23 01/30/21 08:23 Oxygen Flow Rate (L/min) 1 Oxygen Delivery Method Room Air Weight: 208 lb Body Mass Index (BMI) 35.6 Intake & Output: Intake and Output for Last 24 Hours 01/28/21 01/29/21 01/30/21 23:59 23:59 23:59 Intake Total 160 / 1180 3320 / 3320 Output Total 550 / 1550 3800 / 3800 Balance -390 / -370 -480 / -480 Lab / Micro Data Result Diagrams: 01/30/21 08:07 01/30/21 08:07 Labs: Laboratory Results - last 24 hr 01/30/21 08:07: WBC 9.3, RBC 3.81 L, Hgb 10.8 L, Hct 34.3 L, MCV 90.0, MCH 28.3, MCHC 31.5 L, RDW Std Deviation 47.7 H, RDW Coeff of Luis 14.4, Plt Count 315, MPV 9.2, Immature Gran % (Auto) 0.300, Neut % (Auto) 58.6, Lymph % (Auto) 31.3, [place]ton % (Auto) 7.2, Eos % (Auto) 2.2, Baso % (Auto) 0.4, Absolute Neuts (auto) 5.5, Absolute Lymphs (auto) 2.92, Nucleated RBC % 0 01/30/21 08:07: Sodium 139, Potassium 3.5, Chloride 102, Carbon Dioxide 33.0 H, Anion Gap 4 L, BUN 10, Creatinine 0.67, Estim Creat Clear Calc 81.93, Est GFR (MDRD) Af Amer 118, Est GFR (MDRD) Non-Af 97, BUN/Creatinine Ratio 14.9, Glucose 88, Calcium 8.5 Micro: Microbiology 01/27/21 22:45 Mucosa - Nose SARS-CoV-2 Antigen (Rapid) - Final Physical Exam Const alert, oriented x3 and no apparent distress Orientation / Consciousness: awake, oriented to person, oriented to place and oriented to time HEENT normocephalic and moist oral mucous membranes Eyes PERRL, EOMs intact bilaterally and conjunctivae normal Neck no lymphadenopathy Resp normal respiratory effort and clear to auscultation bilaterally Cardio regular rate, regular rhythm and no murmurs Peripheral Pulses: pulses 2+ throughout GI normal to inspection, nondistended, normoactive bowel sounds, non-tender and non-distended Extremity normal to inspection Extremity Narrative: Right lower extremity postop dressing intact. Skin no rashes or lesions noted Lesions: no lesions Rashes: no rashes Trauma: no lacerations or abrasions Neuro CN's II-XII intact bilaterally, no focal motor deficits, no sensory deficits noted and deep tendon reflexes 2+ bilaterally Psych mental status grossly normal and affect normal Assessment & Plan Assessment/Plan (1) Trimalleolar fracture of right ankle: PLAN: 1. Hypertension- controlled. Continue home losartan regimen. 2. Traumatic displaced trimalleolar fracture right ankle- management per podiatry. Patient underwent open reduction internal fixation of the right Malleolus ankle fracture 01/28/2021. DVT prophylaxis- per podiatry Discharge plan: Stable for discharge from hospital medicine standpoint. This patient was seen by Ofelia Saul, GRECIA-C under the supervision of Dr. Baker. Documented by User: Dr. Avery Baker DO 01/30/21 14:02 Objective Data Lab / Micro Data Result Diagrams: 01/30/21 08:07 01/30/21 08:07 Charges/Coding Addendum Addendum: Patient was seen and examined today independently of Ofelia Saul, she is still having some pain in her right ankle but it is not as severe as it was yesterday. Patient denies any shortness of breath or chest discomfort. I talked briefly with Dr. Wanting yesterday about discharge planning for the patient and he intends to place her on Eliquis for prophylaxis against DVT when she is discharged. On examination she appeared in good health and spirits, she does not appear to be in any distress. Vital signs as documented. Skin warm and dry and without overt rashes. Neck without JVD, thyroid appears normal, trachea is midline, neck is supple. Lungs clear, normal air movement was noted. Heart exam notable for regular rhythm, normal sounds and absence of murmurs, rubs or gallops. Abdomen unremarkable and without evidence of organomegaly, masses, or abdominal aortic enlargement, bowel sounds are present in all 4 quadrants, no abdominal tenderness was noted. Extremities-right lower leg is enclosed in the cast, no cyanosis was noted, no clubbing was noted. Neuro: Cranial nerves II through XII are grossly intact, no focal motor deficits were noted, sensation to light touch and pinprick is intact, motor exam 5/5 throughout. Psych: Patient is alert and oriented x3, she does not appear anxious or depressed, she does not appear agitated. Patient appears stable for discharge at this time, I have reviewed Ofelia Saul's progress note including her medical assessment and plan of care and endorse it. Visit Charges Inpatient E&M: 09156 Subs Hosp L2
[2021-01-30] MEDS: Acetaminophen 325 MG Tablet 650 MG PO (13:34)
[2021-01-30] MEDS: Ondansetron 4 MG/2 ML Vial IV (13:35)
[2021-01-30 14:32] VITALS: BP 114/59; PULSE 82; RESP 16; TEMP 37.1; O2SAT 95
--- NOTE | 2021-01-30 15:08 | DCINST_ITS ---
Discharge Instructions Activity Discharge Activity: May Not Drive Weight Bearing Status: No weight bearing (No weightbearing right foot) Keep extremity elevated above heart level: Right Leg (Keep right foot/ankle elevated using pillows as much as possible.) Dressing / Incision Call your doctor if your incision/area has: Continuous Slow Oozing, Sudden Increased Bleeding, Increased Pain/ Swelling, Increased Redness and Foul Sme lling Discharge Call your doctor if you observe: Fever of 101 or Higher, Shortness of breath, Chest pain, Calf discomfort and Uncontrolled pain Change Dressing in: leave in place till F/U Remove Dressing in: do not remove dressing Cleanse incision/area with: Do not get Incision Wet Follow Up Care Please Follow Up With: Moo Roblero DPM When: At [facility]: [address], [place] [address]; [address] Office number: [phone] - follow up on Sunday or this coming week. Test Results: Test results from this visit will be discussed in further detail at your follow-up appointment, if applicable. Discharge Plan Admission Admit Date/Time: 01/27/21 18:26 Attending Provider: Avery Baker Consulting Providers: Noelle Tesfaye Discharge Orders/Prescriptions Prescriptions: New docusate sodium [Colace] 100 mg capsule 100 mg PO BID Qty: 14 RF: 0 polyethylene glycol 3350 [Miralax] 17 gram/dose powder 17 g PO DAILY Qty: 119 RF: 0 Eliquis 2.5 mg tablet 2.5 mg PO Q12H Qty: 42 RF: 0 oxycodone-acetaminophen [Percocet] 5-325 mg tablet 1 - 2 tab PO Q6H PRN (Reason: pain) 7 Days Qty: 30 RF: 0 cholecalciferol (vitamin D3) 125 mcg (5,000 unit) capsule 125 mcg PO DAILY Qty: 60 RF: 0 ondansetron HCl [Zofran] 4 mg tablet 4 mg PO Q8H PRN (Reason: nausea and vomiting) Qty: 14 RF: 0 Discontinued losartan 25 mg Tablet 25 mg PO DAILY RF: 0 Referrals / Follow Up: RACIEL ROBERTS [Other] RACIEL ROBERTS [Other]
--- NOTE | 2021-01-30 15:22 | PCM.DC.SUM ---
Providers Date of Admission: 01/27/21 Primary Care Physician: RACIEL ROBERTS Consultations 01/27/21 18:27 Consult: Hospitalist Routine Consulting Provider: Noelle Tesfaye Reason for Consult: hypertension EMERGENT Consult: No MD Notified: Yes Date Notified: 01/27/21 Time Notified: 18:27 Method of Notification: Verbal Reason For Visit: RIGHT ANKLE FRACTURE Diagnosis Discharge Diagnosis (1) Trimalleolar fracture of right ankle: Status: Acute Code(s): S82.851A - Displaced trimalleolar fracture of right lower leg, initial encounter for closed fracture Medications at Discharge Home Medications apixaban [Eliquis] 2.5 mg PO Q12H #42 tab 01/29/21 cholecalciferol (vitamin D3) 125 mcg PO DAILY #60 cap 01/29/21 docusate sodium [Colace] 100 mg PO BID #14 cap 01/29/21 oxycodone-acetaminophen [Percocet] 1 - 2 tab PO Q6H PRN 7 Days #30 tab 01/29/21 polyethylene glycol 3350 [Miralax] 17 g PO DAILY #119 g 01/29/21 ondansetron HCl [Zofran] 4 mg PO Q8H PRN #14 tab 01/30/21 Hospital Course Operations - (ORIF right ankle) Physical Exam Const Constitutional Narrative: see progress note from 01/30/2021 Weight / BMI Weight Weight: 94.347 kg Body Mass Index (BMI) 35.6 ABG / Lab / Microbiology Data Result Diagrams: 01/30/21 08:07 01/30/21 08:07 Laboratory: Laboratory Results - last 24 hr 01/30/21 08:07: WBC 9.3, RBC 3.81 L, Hgb 10.8 L, Hct 34.3 L, MCV 90.0, MCH 28.3, MCHC 31.5 L, RDW Std Deviation 47.7 H, RDW Coeff of Luis 14.4, Plt Count 315, MPV 9.2, Immature Gran % (Auto) 0.300, Neut % (Auto) 58.6, Lymph % (Auto) 31.3, [place] % (Auto) 7.2, Eos % (Auto) 2.2, Baso % (Auto) 0.4, Absolute Neuts (auto) 5.5, Absolute Lymphs (auto) 2.92, Nucleated RBC % 0 01/30/21 08:07: Sodium 139, Potassium 3.5, Chloride 102, Carbon Dioxide 33.0 H, Anion Gap 4 L, BUN 10, Creatinine 0.67, Estim Creat Clear Calc 81.93, Est GFR (MDRD) Af Amer 118, Est GFR (MDRD) Non-Af 97, BUN/Creatinine Ratio 14.9, Glucose 88, Calcium 8.5 Microbiology: Microbiology 01/27/21 22:45 Mucosa - Nose SARS-CoV-2 Antigen (Rapid) - Final D/C Instructions Weight Bearing Status: No weight bearing (No weightbearing right foot) Keep extremity elevated above heart level: Right Leg (Keep right foot/ankle elevated using pillows as much as possible.) Call your doctor if your incision/area has: Continuous Slow Oozing, Sudden Increased Bleeding, Increased Pain/ Swelling, Increased Redness and Foul Smelling Discharge Call your doctor if you observe: Fever of 101 or Higher, Shortness of breath, Chest pain, Calf discomfort and Uncontrolled pain Cleanse incision/area with: Do not get Incision Wet Please Follow Up With: Moo Roblero DPM When: At [facility]: [address], [place] [address]; [address] Office number: [phone] - follow up on Sunday or this coming week. Meaningful Use Info Meaningful Use Diagnoses (Choose all that apply): None applicable Discharge Plan Admission Admit Date/Time: 01/27/21 18:26 Attending Provider: Avery Baker Consulting Providers: Noelle Tesfaye Discharge Orders/Prescriptions Prescriptions: New docusate sodium [Colace] 100 mg capsule 100 mg PO BID Qty: 14 RF: 0 polyethylene glycol 3350 [Miralax] 17 gram/dose powder 17 g PO DAILY Qty: 119 RF: 0 Eliquis 2.5 mg tablet 2.5 mg PO Q12H Qty: 42 RF: 0 oxycodone-acetaminophen [Percocet] 5-325 mg tablet 1 - 2 tab PO Q6H PRN (Reason: pain) 7 Days Qty: 30 RF: 0 cholecalciferol (vitamin D3) 125 mcg (5,000 unit) capsule 125 mcg PO DAILY Qty: 60 RF: 0 ondansetron HCl [Zofran] 4 mg tablet 4 mg PO Q8H PRN (Reason: nausea and vomiting) Qty: 14 RF: 0 Discontinued losartan 25 mg Tablet 25 mg PO DAILY RF: 0 Referrals / Follow Up: RACIEL ROBERTS [Other] RACIEL ROBERTS [Other] Disposition Discharge Orders: Discharge Patient (Routine); Ordered 01/30/21 Ordered By: Dr. Moo Roblero
== END 2021-01-30 16:46 | disposition home or self-care (01) | DRG 494 ==
LOC: ED 16:50 → MS3 19:02
PROVIDERS: Admitting Provider Podiatrist; Emergency Provider Emergency Medicine; Visit Provider Internal Medicine
PROC: 0QSJ04Z Reposition Right Fibula with Internal Fixation Device, Open Approach (ICD-10-PCS; principal; 2021-01-28 12:50)
DX: S82.851A Displaced trimalleolar fracture of right lower leg, initial encounter for closed fracture (principal); I10 Essential (primary) hypertension; X50.1XXA Overexertion from prolonged static or awkward postures, initial encounter; Y93.01 Activity, walking, marching and hiking; Y92.89 Other specified places as the place of occurrence of the external cause; Y99.8 Other external cause status
CPT/HCPCS: 36415; 73610; 73700; 76000; 76377; 80048; 80053; 82306; 85025; 87426; 93005; 97162; 97530; 99251; 99285; C1713; J7120; A4216; G0463; J2405